=== PATIENT | male | born 1975 | race Caucasian/White ===

== ENCOUNTER 2023-03-25 12:01 | Emergency (ER) | payer SELFPAY ==
[2023-03-25] MEDS ORDERED: Lidocaine 1% 5 ML VIAL ONE (12:05)
[2023-03-25] MEDS ORDERED: Lidocaine 1% 5 ML VIAL INJECT ONE (12:06)
[2023-03-25] MEDS ORDERED: Diphtheria,Pertussis(Acell),Tetanus Vaccine 0.5 ML Syringe IM ONE (12:12)
[2023-03-25] MEDS ORDERED: Cephalexin 500 MG Cap PO ONE (12:12)
[2023-03-25] MEDS ORDERED: Ibuprofen 800 MG Tab PO ONE (12:34)
[2023-03-25] MEDS ORDERED: Take Home: Acetaminophen/oxyCODONE 325-5 MG, 5 Tab Pack PO ONE (12:35)
[2023-03-25] MEDS ORDERED: Acetaminophen/oxyCODONE 325-5 MG Tab PO ONE (12:35)
[2023-03-25] MEDS ORDERED: Take Home: Cephalexin 500 MG Cap, 6 Cap Pack PO ONE (13:31)
== END 2023-03-25 13:48 | disposition home or self-care (01) ==
LOC: DL.ED 12:01
DX: S61.216A Laceration without foreign body of right little finger without damage to nail, initial encounter (principal); S60.221A Contusion of right hand, initial encounter; Z23 Encounter for immunization; W23.1XXA Caught, crushed, jammed, or pinched between stationary objects, initial encounter; Y99.0 Civilian activity done for income or pay
CPT/HCPCS: 12001; 73130; 90471; 90715; 93010; 99283; A9270; J3490